=== PATIENT | male | born 1970 | race Caucasian/White ===

== ENCOUNTER 2020-03-03 14:32 | Emergency (ER) | payer SELFPAY ==
--- NOTE | ~2020-03-03 | XR_ITS ---
XR knee LT 3V 03/03/2020 15:20 Indication: Twisting injury to the left knee. Procedure: 3 views left knee Comparison: No prior studies for comparison. Findings: No fracture, subluxation or dislocation. Large joint effusion. No foreign bodies. No signif icant joint space narrowing. Impression: 1: Large joint effusion. Reviewed, dictated and finalized at location A. Impression: 1: Large joint effusion.
[2020-03-03 14:43] VITALS: BP 163/94; PULSE 111; RESP 20; TEMP 37.6; O2SAT 99
--- NOTE | 2020-03-03 15:41 | ED.LOWEXIN ---
HPI - Extremity Injury (Lower) General Chief Complaint: Extremity Injury, Lower Stated Complaint: left knee injury Time Seen by Provider: 03/03/20 14:50 Source: patient Mode of arrival: ambulatory Limitations: no limitations History of Present Illness HPI Narrative: Patient is a 49-year-old male who presents to emergency department for evaluation of left knee injury that occurred yesterday after jumping down off an object injuring the left knee patient notes swelling and tenderness of the knee joint worse with ambulation and activity has had similar occurrence in the past but did not follow-up. Patient notes moderate aching pain with swelling of the joint worse with weightbearing and activity. Patient denies other injuries or complaints and has not had anything for his symptoms and presents in no distress Related Data Allergies Allergy/AdvReac Type Severity Reaction Status Date / Time No Known Allergies Allergy Verified 03/03/20 14:36 Review of Systems Review of Systems: All systems reviewed & are unremarkable except as noted in HPI and below PMFSH Surgical History Surgical History (Updated 03/03/20 @ 15:44 by Hiren Rizvi PA-C) History of orthopedic surgery Social History Social History Gender identity (if verbalized by the patient): Male Exam Narrative: Exam Narrative: GENERAL: Well-appearing, well-nourished, and in no acute distress. HEAD: Normocephalic, atraumatic. EYES: PERRLA and EOMI. ENT: Nares clear, no rhinorrhea or epistaxis. Mucous membranes moist. EXTREMITIES: Large effusion of the left knee joint no erythema tenderness throughout the joint no other deformities noted SKIN: Warm, dry, no rash. NEURO: No focal deficits. Alert and oriented x3. Neurovascularly intact. Capillary refill less than 2 seconds PSYCH: Normal mood and affect. Course Course Emergency Course: Patient in the room at this time in no distress aware of case findings treatment plan and diagnosis agreeing to follow-up as directed Vital Signs Vital signs: Vital Signs Temperature 99.7 F H 03/03/20 14:43 Pulse Rate 111 H 03/03/20 14:43 Respiratory Rate 03/03/20 14:43 Blood Pressure 163/94 H 03/03/20 14:43 Pulse Oximetry 99 03/03/20 14:43 Temperature 99.7 F H 03/03/20 14:43 Pulse Rate 111 H 03/03/20 14:43 Respiratory Rate 20 03/03/20 14:43 Blood Pressure 163/94 H 03/03/20 14:43 Pulse Oximetry 99 03/03/20 14:43 MDM - Extremity Injury (Lower) MDM Narrative Medical decision making narrative: Patients injury or pain is consistent with musculoskeletal etiology. No signs of neurological or vascular compromise on exam. Compartments and tisues are soft without signs of compartment syndrome. Pain is felt appropriate for further evaluation on an outpatient basis. Imaging Data Radiologist's impression: ITS Impressions Knee X-Ray 03/03/20 15:23 Impression: 1: Large joint effusion. Discharge Plan Discharge Clinical Impression: Acute internal derangement of knee Patient Disposition: Home, Self-Care Condition: Stable Instructions: Antibiotic Form, Arthralgia (ED) Additional Instructions: Wear brace and use walker with limited weight on the affected leg until able to bear weight without pain. Ice and elevate extremity. Pain medication as needed and directed. Follow-up with orthopedist in the next 7 days for reevaluation. Return if symptoms worsen or concerns or any increase in redness swelling pain or fever over 100.5 or any loss of feeling or function in the extremity Prescriptions: New ibuprofen [IBU] 600 mg tablet 600 mg PO Q6H PRN (Reason: fever or pain) Qty: 7 RF: 0 Follow-up/Referrals: PHYSICIAN,PULPING MACHINE OPERATOR [Primary Care Provider] - Fitz Flynn MD [Physician] - Stand Alone Forms: Work/School Release IP
== END 2020-03-03 16:11 | disposition home or self-care (01) ==
PROVIDERS: Emergency Provider Emergency Medicine
DX: S83.207A Unspecified tear of unspecified meniscus, current injury, left knee, initial encounter (principal); X58.XXXA Exposure to other specified factors, initial encounter
CPT/HCPCS: 73562; 99283

== ENCOUNTER 2023-09-20 19:51 | Emergency (ER) | payer SELFPAY ==
[2023-09-20 20:26] VITALS: BP 210/95; PULSE 77; RESP 15; TEMP 36.4; O2SAT 99
--- NOTE | 2023-09-20 20:34 | ECG_ITS ---
Measurements Intervals [place] Rate: 62 P: 34 ND: 144 QRS: 5 QRSD: 90 T: 26 QT: 399 QTc: 408 Interpretive Statements SINUS RHYTHM NO PREVIOUS ECG AVAILABLE FOR COMPARISON Electronically Signed On 09-21-2023 13:17:27 CAT DRIVER by Matty Steele M.D.
[2023-09-20 20:57] LABS: Basophils Absolute Auto 0.1 K/mm3 (0.0-0.1); Basophils Percent Auto 0.8 % (0.2-1.2); Eosinophils Absolute Auto 0.2 K/mm3 (0-0.3); Eosinophils Percent Auto 2.5 % (0-4.4); Hematocrit 46.6 % (42.0-52.0); Hemoglobin 15.1 g/dL (14.0-18.0); Immature Granulocyte Absolute 0.09 K/mm3 (0.00-0.031); Immature Granulocyte Percent A 1.3 % (0-0.5); Lymphocytes Absolute Auto 1.76 K/mm3 (0.9-3.2); Lymphocytes Percent Auto 24.9 % (18.3-44.2); Mean Corpuscular HGB Conc 32.4 g/dl (32-36); Mean Corpuscular Hemoglobin 30.5 pg (26-34); Mean Corpuscular Volume 94.1 fl (80-100); Mean Platelet Volume 9.9 fl (7.4-10.4); Monocytes Absolute Auto 0.7 K/mm3 (0.1-0.6); Monocytes Percent Auto 10.3 % (2.6-8.5); Neutrophils Absolute Auto 4.3 K/mm3 (1.3-6.7); Neutrophils Percent Auto 60.2 % (45.5-73.1); Platelet Count Result 216 k/mm3 (150-375); Red Blood Count 4.95 M/mm3 (4.6-6.20); Red Cell Distribution Width 12.1 % (11.5-14.5); White Blood Count 7.1 K/mm3 (4.5-10.0)
[2023-09-20 20:59] LABS: Alanine Aminotransferase 33 U/L (6-50); Albumin Level 4.2 g/dL (3.5-5.1); Alkaline Phosphatase 109 U/L (38-126); Anion Gap 8 mmol/L (8-16); Aspartate Amino Transferase 26 U/L (17-59); Bilirubin,Total 0.5 mg/dL (0.2-1.3); Blood Urea Nitrogen 16 mg/dL (9-20); Calcium 9.4 mg/dL (8.4-10.2); Carbon Dioxide 22 mmol/L (22-30); Chloride 107 mmol/L (98-107); Estimated CRCL calculation 119 ml/min; Estimated Glomerular Filt Rate > 60; Glucose 103 mg/dL (65-110); Lipase 71 U/L (23-300); Potassium 4.1 mmol/L (3.4-5.0); Sodium 137 mmol/L (137-145)
[2023-09-20 21:14] LABS: Troponin I < 0.012 ng/mL (0.000-0.034)
[2023-09-21] VITALS (12 sets, daily range): BP systolic 139–195; BP diastolic 85–118; PULSE 63–83; RESP 12–19; TEMP 36.6–36.9; O2SAT 97–99
--- NOTE | 2023-09-21 02:34 | PC.NURSE ---
Patient was able to ambulate to ED rm 14 w/o assistance .
--- NOTE | 2023-09-21 02:35 | ECG_ITS ---
Measurements Intervals [place] Rate: 62 P: 49 [place]: 150 QRS: 41 QRSD: 92 T: 41 QT: 414 QTc: 424 Interpretive Statements SINUS RHYTHM COMPARED TO ECG 09/20/2023 20:38:55 NO SIGNIFICANT CHANGES Electronically Signed On 09-21-2023 20:49:21 [employer] PRESIDENT by Matty Steele M.D.
[2023-09-21 02:41] LABS: Appearance Urine Cloudy (Clear); Bacteria Urine None Seen /hpf; Bilirubin Urine Negative (Negative); Blood Urine Negative (Negative); Color Urine Yellow (Yellow); Glucose Urine UA Negative (Negative); Ketones Urine Negative (Negative); Leukocyte Esterase Ur Negative LEU/UL (Negative); Nitrate Urine Negative (Negative); Non Pathogenic Casts 0-2; Protein Urine Negative (Negative); RBC Urine 0-2 /hpf (0-2); Specific Grav Ur 1.024 (1.001-1.035); Squamous Epithelial Cell Urine None seen /hpf (Few); Urobilinogen Urine 0.2 mg/dL (<2.0); WBC Urine 0-5 /hpf
[2023-09-21 02:44] LABS: Add Urine Microscopic? YES
[2023-09-21 03:11] LABS: Troponin I < 0.012 ng/mL (0.000-0.034)
--- NOTE | 2023-09-21 04:21 | PC.NURSE ---
Patient was able to ambulate to bathroom with a steady gait unassisted.
--- NOTE | 2023-09-21 05:34 | ED.GENADULT ---
HPI - General Adult General Chief complaint: Dizziness Stated complaint: HTN, dizziness Time Seen by Provider: 09/21/23 03:46 History of Present Illness HPI narrative: Patient 52-year-old gentleman who presents emergency department chief complaint of lightheadedness. Patient reports that he noticed that he started feeling just not so good and reported that checked his blood pressure it was in the 200s. The patient states he felt a little tingly over his body denied focal neurological deficit the patient reports that he has recently been drinking lot of alcohol and also has been using high concentration nicotine vape pen. The patient reports that he currently does not have a primary care provider Related Data Allergies Allergy/AdvReac Type Severity Reaction Status Date / Time No Known Allergies Allergy Verified 03/03/20 14:36 Review of Systems Review of Systems: A 10 system review of systems was completed on the patient and is negative except for what is stated in the HPI. Nursing and ancillary documentation was reviewed. [facility] Surgical History Surgical History History of orthopedic surgery Social History Social History Gender identity (if verbalized by the patient): Male Exam Narrative: GENERAL: Well-appearing, well-nourished, and in no acute distress. HEAD: Normocephalic, atraumatic. EYES: PERRLA and EOMI. ENT: Nares clear, no rhinorrhea or epistaxis. Mucous membranes moist. NECK: Supple. CHEST: Clear to auscultation. No respiratory distress. HEART: Regular rate and rhythm. No murmur heard. Normal peripheral pulses. ABDOMEN: Soft, nontender, nondistended, normal active bowel sounds. EXTREMITIES: Normal range of motion. No edema. SKIN: Warm, dry, no rash. NEURO: No focal deficits. Alert and oriented x3. NIH 0 PSYCH: Normal mood and affect. Course Vital Signs Vital signs: Vital Signs Temperature 36.4 C 09/20/23 20:26 Pulse Rate 77 09/20/23 20: Respiratory Rate 15 09/20/23 20: Blood Pressure 210/95 H 09/20/23 20:26 Pulse Oximetry 99 09/20/23 20:26 Oxygen Delivery Room Air 09/20/23 20:26 Temperature 36.9 C 09/21/23 02:29 Pulse Rate 77 09/21/23 03:46 Respiratory Rate 14 09/21/23 03:46 Blood Pressure 139/85 09/21/23 03:46 Pulse Oximetry 98 09/21/23 03:46 Oxygen Delivery Room Air 09/20/23 20:26 Medical Decision Making MDM Narrative Medical decision making narrative: Differential diagnosis includes hypertensive urgency, ACS, electrolyte abnormality, EKG showed no acute ischemic changes initial troponin was negative Patient's blood pressure did come down steps the initially in the patient's symptoms are currently resolved. The patient shows no signs of focal neurological deficit the patient will be started on a low-dose antihypertensive and will be referred to primary care Vital Signs Vital Signs: Vital Signs Temperature 36.4 C 09/20/23 20:26 Pulse Rate 77 09/20/23 20:26 Respiratory Rate 15 09/20/23 20:26 Blood Pressure 210/95 H 09/20/23 20:26 Pulse Oximetry 99 09/20/23 20:26 Oxygen Delivery Room Air 09/20/23 20:26 Temperature 36.9 C 09/21/23 02:29 Pulse Rate 77 09/21/23 03:46 Respiratory Rate 14 09/21/23 03:46 Blood Pressure 139/85 09/21/23 03:46 Pulse Oximetry 98 09/21/23 03:46 Oxygen Delivery Room Air 09/20/23 20:26 Lab Data 09/20/23 20:42 09/20/23 20:42 Labs: Lab Results 09/20/23 09/20/23 09/21/23 Range/Units 20:42 20:44 02:28 WBC 7.1 (4.5-10.0) K/mm3 RBC 4.95 (4.6-6.20) M/mm3 Hgb 15.1 (14.0-18.0) g/dL Hct 46.6 (42.0-52.0) % MCV 94.1 (80-100) fl MCH 30.5 (26-34) pg MCHC 32.4 (32-36) g/dl RDW 12.1 (11.5-14.5) % Plt Count 216 (150-375) k/mm3 MPV 9.9 (7.4-10.4) fl Imm
== END 2023-09-21 05:57 | disposition home or self-care (01) ==
PROVIDERS: Emergency Provider Emergency Medicine
DX: I10 Essential (primary) hypertension (principal); R42 Dizziness and giddiness; F17.290 Nicotine dependence, other tobacco product, uncomplicated
CPT/HCPCS: 36415; 80053; 81001; 83690; 84484; 85025; 93005; 99284

== ENCOUNTER 2024-12-25 06:42 | Outpatient (CLI) | payer OTHER, SELFPAY ==
--- OUTSIDE RECORDS SUMMARY | 2024-12-25 06:46 | XMS_ITS | Continuity of Care Document ---
Author Organization [facility] Address [address] [place] [address] utive [facility] [address] [place] [address] Phone Care Team Providers Care Cafe Worker Name Role Phone Jairo Kim Unavailable Unavailable Procedures Procedure Date Office/outpatient Visit, [facility] Remove Foreign Body From Eye Advance Directives Directive Yes / No Effective Date File Name No Information Encounters Encounter Description Practice Location Reason(s) For Visit Diagnoses Date Provider Providers Copied on Encounter Office/outpat ient Visit, [facility], [address] [place] [address] [address], [place], [place], [id number], [place] tel:[phone] [facility] [place] No Information [address] [facility] [place] , [place] [address], [place], [place], [facility], . tel:[phone] Referring Provider: Phong Becker [facility] [address], [place], [place], [facility]. tel:[phone] Family History Family Member Type Diagnosis Age At Onset No Information Payers Payer name Insurance type Covered alliance party ID Authoriza tion(s) No Information Social History Type Description Quantity Date Captured Comments Sex Male Smoking Status No Information Chief Complaint And Reason For Visit No Information Reason For Referral Reason For Referral No Information History Of Present Illness Encounter Date Complaint History Of Prese nt Illness No Information Functional Status Date Functional Assessmen t No Information Instructions Date Instruction Additional Infor mation No Information Assessments Type Assessment Date No Information Patient Care Teams Name Effective Dates (start - stop) Status Members No Information
[2024-12-25 08:17] LABS: Alanine Aminotransferase 26 U/L (6-50); Albumin Level 4.4 g/dL (3.5-5.1); Alkaline Phosphatase 95 U/L (38-126); Anion Gap 6 mmol/L (4-12); Aspartate Amino Transferase 25 U/L (17-59); Bilirubin,Total 0.8 mg/dL (0.2-1.3); Blood Urea Nitrogen 18 mg/dL (9-20); Calcium 8.8 mg/dL (8.4-10.2); Carbon Dioxide 26 mmol/L (22-30); Chloride 104 mmol/L (98-107); Cholesterol 302 mg/dL (0-200); Estimated Glomerular Filt Rate > 60; Glucose 107 mg/dL (65-110); HDL Direct 69 mg/dL; Potassium 4.2 mmol/L (3.4-5.0); Sodium 136 mmol/L (137-145); Triglycerides 347 mg/dL (<150)
[2024-12-25 08:28] LABS: LDL Cholesterol Direct 165 mg/dL
[2024-12-25 08:47] LABS: Prostate Specific Antigen 0.5 ng/mL (< OR = 4.0)
[2024-12-25 09:57] LABS: Vitamin D 25 Hydroxy 20.3 ng/mL
== END 2024-12-25 06:43 | disposition home or self-care (01) ==
LOC: ANHLAB 06:44
PROVIDERS: PCP Emergency Medicine; Visit Provider Emergency Medicine
DX: E55.9 Vitamin D deficiency, unspecified (principal); E78.5 Hyperlipidemia, unspecified; Z12.5 Encounter for screening for malignant neoplasm of prostate
CPT/HCPCS: 36415; 80053; 80061; 82306; 84153; G0103

== ENCOUNTER 2025-07-13 12:24 | Outpatient (CLI) | payer OTHER, SELFPAY ==
[2025-07-13 13:16] LABS: Alanine Aminotransferase 27 U/L (6-50); Albumin Level 4.3 g/dL (3.5-5.1); Alkaline Phosphatase 86 U/L (38-126); Anion Gap 7 mmol/L (4-12); Aspartate Amino Transferase 48 U/L (17-59); Bilirubin,Total 0.9 mg/dL (0.2-1.3); Blood Urea Nitrogen 12 mg/dL (9-20); Calcium 8.5 mg/dL (8.4-10.2); Carbon Dioxide 26 mmol/L (22-30); Chloride 106 mmol/L (98-107); Cholesterol 244 mg/dL (0-200); Estimated Glomerular Filt Rate > 60; Glucose 86 mg/dL (65-110); Potassium 4.2 mmol/L (3.4-5.0); Sodium 139 mmol/L (137-145); Total Protein 7.4 g/dL (6.3-8.2); Triglycerides 59 mg/dL (<150)
[2025-07-13 13:25] LABS: Hemoglobin A1C 4.6 % (<5.7)
[2025-07-13 13:29] LABS: HDL Direct 119 mg/dL
== END 2025-07-13 12:25 | disposition home or self-care (01) ==
LOC: ANHLAB 12:24
PROVIDERS: PCP Emergency Medicine; Visit Provider Emergency Medicine
DX: E78.5 Hyperlipidemia, unspecified (principal); E55.9 Vitamin D deficiency, unspecified; E11.9 Type 2 diabetes mellitus without complications
CPT/HCPCS: 36415; 80053; 80061; 82306; 83036